=== PATIENT | male | born 1985 | race American Indian/Alaskan Native ===

== ENCOUNTER 2018-01-02 20:08 | Emergency (ER) | payer SELFPAY ==
[2018-01-02 20:18] VITALS: BP 134/97
[2018-01-02] MEDS ORDERED: ZOFRAN ODT PO PRN (20:18)
[2018-01-02] MEDS ORDERED: NACL 0.9% 1000 ML 1,000 ML IV ONE (20:18)
[2018-01-02] MEDS ORDERED: ZOFRAN ONE (20:25)
[2018-01-02] MEDS ORDERED: ZOFRAN IV ONE (20:36)
[2018-01-02 22:30] LABS: Basophils % (Auto) 0.4 % (0.0-1.8); Hemoglobin 13.5 gm/dl (11.8-15.2); Lymphocytes # (Auto) 1.2 K/mm3 (1.2-5.4); Lymphocytes % (Auto) 10.2 % (13.4-35.0); Mean Corpuscular HGB Conc 34 % (32-34); Mean Corpuscular Hemoglobin 32 pg (28-32); Mean Corpuscular Volume 95 fl (84-94); Monocytes # (Auto) 0.8 K/mm3 (0.0-0.8); Monocytes % (Auto) 6.7 % (0.0-7.3); Platelet Count 253 K/mm3 (140-440); Red Blood Count 4.19 M/mm3 (3.65-5.03); Red Cell Distribution Width 12.7 % (13.2-15.2)
[2018-01-02 22:42] LABS: Albumin 4.8 g/dL (3.9-5); Calcium 9.8 mg/dL (8.4-10.2)
== END 2018-01-02 22:33 | disposition left against medical advice (07) ==
LOC: ED 20:08
DX: R11.2 Nausea with vomiting, unspecified (principal); Z53.21 Procedure and treatment not carried out due to patient leaving prior to being seen by health care provider
CPT/HCPCS: 36415; 80053; 83690; 85025; J2405; J7030; Q0162

== ENCOUNTER 2018-01-03 11:55 | Emergency (ER) | payer SELFPAY ==
[2018-01-03 12:15] VITALS: BP 142/86
[2018-01-03] MEDS ORDERED: NACL 0.9% 1000 ML 1,000 ML IV ONE ×2 (12:16→14:12)
[2018-01-03 13:01] LABS: Basophils # (Auto) 0.1 K/mm3 (0.0-0.1); Basophils % (Auto) 0.4 % (0.0-1.8); Eosinophils % (Auto) 0.1 % (0.0-4.3); Hematocrit 39.1 % (35.5-45.6); Hemoglobin 13.5 gm/dl (11.8-15.2); Lymphocytes # (Auto) 1.7 K/mm3 (1.2-5.4); Lymphocytes % (Auto) 13.7 % (13.4-35.0); Mean Corpuscular HGB Conc 35 % (32-34); Mean Corpuscular Hemoglobin 33 pg (28-32); Mean Corpuscular Volume 94 fl (84-94); Monocytes # (Auto) 0.9 K/mm3 (0.0-0.8); Monocytes % (Auto) 7.2 % (0.0-7.3); Platelet Count 253 K/mm3 (140-440); Red Blood Count 4.15 M/mm3 (3.65-5.03); Red Cell Distribution Width 12.9 % (13.2-15.2)
[2018-01-03 13:23] LABS: Albumin 4.6 g/dL (3.9-5); Calcium 10.4 mg/dL (8.4-10.2)
[2018-01-03] MEDS ORDERED: MORPHINE IV ONE (14:12)
[2018-01-03] MEDS ORDERED: ZOFRAN IV ONE (14:13)
--- NOTE | 2018-01-03 14:15 | Emergency Department Report ---
Blank Doc - Documentation Documentation: Patient presents to the emergency department with a chief complaint of nausea and vomiting 2 weeks. Onset of right lower quadrant abdominal pain 3 days ago. Patient states that his son was sick a couple weeks ago with nausea vomiting and thought his symptoms were secondary to that actually began to have abdominal pain 3 days ago. Patient came to the ED yesterday but left due to the wait. On exam he has dry mucous membranes and his abdomen is tender to palpation in the right lower quadrant. IV fluids, IV antiemetics, IV pain medicine and a CT of the abdomen will be ordered. Care will be turned over to the mid-level care provider with me available for consultation
[2018-01-03 14:36] LABS: Bacteria,Urine 1+ /HPF (Negative); Bilirubin,Urine NEG (Negative); Blood,Urine LG (Negative); Color,Urine Yellow (Yellow); Mucus,Urine 3+ /HPF; Urobilinogen,Urine < 2.0 mg/dL (<2.0)
--- NOTE | 2018-01-03 16:54 | Cat Scan Report ---
FINAL REPORT EXAM: CT ABDOMEN PELVIS WO CON HISTORY: rlq ab pain COMPARISON: None. TECHNIQUE: Multiple contiguous axial images were obtained from the lung bases to the pubic symphysis without administration of IV contrast. Oral contrast was administered. FINDINGS: Lung bases: Normal. Visualized heart and mediastinum: Normal noncontrast appearance. Liver: Normal noncontrast appearance. Spleen: Normal noncontrast appearance. Pancreas: Normal noncontrast appearance. Gallbladder and Biliary Tree: No calcified gallstones. No biliary ductal dilatation. Adrenal glands: Normal. Kidneys: There is mild right hydronephrosis. There is mild right hydroureter. There is a 3 millimeter stone in the distal right ureter at the level of the pelvis (series 2, image 149). Additional punctate nonobstructive calcification in the inferior pole of the right kidney (series 2, image 71). Bladder: Normal. Pelvic organs: Normal. Bowel: No focal wall thickening. No evidence of obstruction. The appendix is of normal caliber without surrounding inflammatory change. Oral contrast advances to the transverse colon. Peritoneum: No significant mesenteric adenopathy. No free air or free fluid. Vasculature: Abdominal aorta is normal in caliber without evidence of aneurysm. Normal noncontrast appearance of the inferior vena cava and portal venous system. Bones and soft tissues: No suspicious osseous lesions. No acute fracture or dislocation. Small, fat containing bilateral inguinal hernias. IMPRESSION: 3 millimeter stone in the distal right ureter with associated mild right hydronephrosis and hydroureter. Additional punctate nonobstructive calcification in the inferior pole of the right kidney. Normal appendix.
--- NOTE | 2018-01-03 17:09 | Emergency Department Report ---
ED Abdominal Pain HPI - General Chief Complaint: Abdominal Pain Stated Complaint: PAIN Time Seen by Provider: 01/03/18 13:45 Source: patient Mode of arrival: Ambulatory Limitations: No Limitations - History of Present Illness Initial Comments: This is a 32-year-old male nontoxic, well nourished in appearance, no acute signs of distress presents to the ED with c/o of nausea and vomiting and abdominal pain 3 days. Patient describes vomiting as food content and yellow gastric acid. Patient describes abdominal pain as cramping and aching with level of 3/10 right lower quadrant. Patient also stated has some flank pain in the right side. Patient denies chest pain, short of breath, fever, chills, headache, stiff neck, numbness or tingling. Patient denies any diarrhea or constipation. Patient denies any recent travels. Patient denies any allergies or significant PMH. MD Complaint: abdominal pain, flank pain -: days(s) (3) Location: RLQ, R flank Radiation: none Migration to: no migration Severity scale (0 -10): 8 Quality: aching Consistency: constant Improves With: nothing Worsens With: nothing Associated Symptoms: nausea, vomiting. denies: diarrhea, fever, chills, constipation, dysuria, hematemesis, hematochezia, melena, hematuria, anorexia, syncope - Related Data Previous Rx's Medication Instructions Recorded Last Taken Type Ciprofloxacin HCl [Ciprofloxacin 500 mg PO Q12H #20 tab 04/06/15 Unknown Rx TAB] Ibuprofen [Motrin] 800 mg PO Q8HR PRN #20 tablet 04/06/15 Unknown Rx Acetaminophen/Codeine [Tylenol 1 tab PO Q6H PRN #12 tab 01/03/18 Unknown Rx /Codeine # 3 tab] Tamsulosin [Flomax] 0.4 mg PO QDAY #5 cap 01/03/18 Unknown Rx Allergies Allergy/AdvReac Type Severity Reaction Status Date / Time No Known Allergies Allergy Unverified 04/06/15 14:44 ED Review of Systems ROS: Stated complaint: PAIN Other details as noted in HPI Constitutional: denies: chills, fever Eyes: denies: eye pain, eye discharge, vision change ENT: denies: ear pain, throat pain Respiratory: denies: cough, shortness of breath, wheezing Cardiovascular: denies: chest pain, palpitations Endocrine: no symptoms reported Gastrointestinal: abdominal pain, nausea, vomiting. denies: diarrhea Genitourinary: denies: urgency, dysuria Musculoskeletal: denies: back pain, joint swelling, arthralgia Skin: denies: rash, lesions Neurological: denies: headache, weakness, paresthesias Psychiatric: denies: anxiety, depression Hematological/Lymphatic: denies: easy bleeding, easy bruising ED Past Medical Hx - Past Medical History Previous Medical History?: No - Surgical History Past Surgical History?: No - Social History Smoking Status: Current Every Day Smoker Substance Use Type: None - Medications Home Medications: Home Medications Medication Instructions Recorded Confirmed Last Taken Type Ciprofloxacin HCl [Ciprofloxacin 500 mg PO Q12H #20 tab 04/06/15 Unknown Rx TAB] Ibuprofen [Motrin] 800 mg PO Q8HR PRN #20 tablet 04/06/15 Unknown Rx Acetaminophen/Codeine [Tylenol 1 tab PO Q6H PRN #12 tab 01/03/18 Unknown Rx /Codeine # 3 tab] Tamsulosin [Flomax] 0.4 mg PO QDAY #5 cap 01/03/18 Unknown Rx ED Physical Exam - General Limitations: No Limitations General appearance: alert, in no apparent distress - Head Head exam: Present: atraumatic, normocephalic - Eye Eye exam: Present: normal appearance Pupils: Present: normal accommodation - ENT ENT exam: Present: normal exam, mucous membranes moist - Neck Neck exam: Present: normal inspection, full ROM. Absent: tenderness, meningismus, lymphadenopathy - Respiratory Respiratory exam: Present: normal lung sounds bilaterally. Absent: respiratory distress, wheezes, rales, rhonchi, stridor, chest wall tenderness, accessory muscle use, decreased breath sounds, prolonged expiratory - Cardiovascular Cardiovascular Exam: Present: regular rate, normal rhythm, normal heart sounds. Absent: irregular rhythm, systolic murmur, diastolic murmur, rubs, gallop - GI/Abdominal GI/Abdominal exam: Present: soft, tenderness (RLQ), normal bowel sounds. Absent : distended, guarding, rebound, rigid, diminished bowel sounds, hyperactive bowel sounds, hypoactive bowel sounds - Rectal Rectal exam: Present: deferred - Extremities Exam Extremities exam: Present: normal inspection, full ROM, normal capillary refill. Absent: tenderness - Back Exam Back exam: Present: normal inspection, full ROM. Absent: tenderness, CVA tenderness (R), CVA tenderness (L), muscle spasm, paraspinal tenderness, vertebral tenderness, rash noted - Neurological Exam Neurological exam: Present: alert, oriented X3, normal gait - Psychiatric Psychiatric exam: Present: normal affect, normal mood - Skin Skin exam: Present: warm, dry, intact, normal color. Absent: rash ED Course Vital Signs 01/03/18 01/03/18 12:12 14:53 Temperature 98 F Pulse Rate 52 L Respiratory 18 20 Rate Blood Pressure 142/86 O2 Sat by Pulse 100 Oximetry - Reevaluation(s) Reevaluation #1: 01/03/18 17:09 Patient is speaking in full sentences with no questions noted by the patient. - Consultations Consultation #1: 01/03/18 17:10 Patient has been consulted with Luis Antonio Brito about patient history, physical exam, and labs/CT and examined and screened patient and agrees to ED plan of care and discharge plan of care. ED Medical Decision Making - Lab Data Result diagrams: 01/03/18 12:53 01/03/18 12:53 - Medical Decision Making This is a 32-year-old female that presents with right ureteral stone. Patient is stable and was examined by me. There is slight abdominal tenderness. Negative signs or symptoms of appendicitis. Labs obtained. UA obtained. US of abdomen obtained and dictated by the radiologist. Patient is notified of the report with no questions noted by the patient. Vital signs are stable prior to discharge. Patient received medical treatment in the ED which patient stated symptoms has resolved and subsided. A by mouth challenge has been obtained and patient tolerated well with no nausea vomiting. Patient was notified of strict precautions of appendicitis symptoms and to return to the ED if symptoms occurs as soon as possible. Patient was also instructed to Follow-up with a primary care doctor in 3-5 days or if symptoms worsen and continue return to emergency room as soon as possible. At time of discharge, the patient does not seem toxic or ill in appearance. No acute signs of distress noted. Patient agrees to discharge treatment plan of care. No further questions noted by the patient. Critical care attestation.: If time is entered above; I have spent that time in minutes in the direct care of this critically ill patient, excluding procedure time. ED Disposition Clinical Impression: Right ureteral stone Abdominal pain Qualifiers: Abdominal location: right lower quadrant Qualified Code(s): R10.31 - Right lower quadrant pain Hydronephrosis Qualifiers: Hydronephrosis type: unspecified Qualified Code(s): N13.30 - Unspecified hydronephrosis Disposition: - TO HOME OR SELFCARE Is pt being admited?: No Does the pt Need Aspirin: No Condition: Stable Instructions: Kidney Stones (ED), Tamsulosin (By mouth) Additional Instructions: Follow-up with a primary care doctor in 3-5 days or if symptoms worsen and continue return to emergency room as soon as possible. Prescriptions: Acetaminophen/Codeine [Tylenol /Codeine # 3 tab] 1 tab PO Q6H PRN #12 tab PRN Reason: Pain , Severe (7-10) Tamsulosin [Flomax] 0.4 mg PO QDAY #5 cap Referrals: PRIMARY CAREMD [Primary Care Provider] - 3-5 Days MISAEL CAROLINA MD [Staff Physician] - 3-5 Days [facility] [Outside] - 3-5 Days [facility] [Outside] - 3-5 Days Forms: Work/School Release Form(ED)
== END 2018-01-03 17:52 | disposition home or self-care (01) ==
LOC: ED 11:55
DX: N13.30 Unspecified hydronephrosis (principal); N20.1 Calculus of ureter; F17.200 Nicotine dependence, unspecified, uncomplicated
CPT/HCPCS: 36415; 74176; 80053; 81001; 83690; 85025; 96361; 96374; 96375; 99284; J2270; J2405; J7030